=== PATIENT | female | born 1970 | race Caucasian/White ===

== ENCOUNTER 2022-02-14 14:18 | Emergency (ER) | payer BC ==
[~2022-02-14] VITALS: Ht 157.5 cm; Wt 113.4 kg
[~2022-02-14 14:18] MED LIST: ADIPEX-P37.5 MG PO; ALEVE220 M1 PO; CRESTOR20 MG PO; GLIPIZIDE5 MG PO; NORCO 10-325 T1 EACH PO; PAROXETINE HCL10 MG PO; PAROXETINE HCL20 MG PO; PHENTERMINE HCL15 MG PO; XYZAL5 MG PO; ZESTRIL5 MG PO
--- OUTSIDE RECORDS SUMMARY | 2022-02-14 14:20 | XMS ---
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 Pita has no Care Guidelines for this patient. Zoltan VISIT COUNT (12 MO.) 1 [facility] TOTAL 1 NOTE: Visits indicate total known visits. ED/C VISIT TRACKING (12 MO.) 02/14/2022 14:19 [facility] [place] TYPE: Emergency COMPLAINT: - BACK PAIN AFTER FALL INPATIENT VISIT TRACKING (12 MO.) No inpatient visits to display in this time frame [id number]
[2022-02-14] MEDS ORDERED: OZEMPIC1 MG/0.71 SQ (16:17)
[2022-02-14] MEDS ORDERED: FREESTYLE LIBR1 EAC2 MC (16:17)
[2022-02-14] MEDS ORDERED: METFORMIN HCL500 M1 PO (16:17)
[2022-02-14] MEDS ORDERED: HYDROCODON-ACE1 EA10 PO (18:57)
== END 2022-02-14 20:40 | disposition home or self-care (01) ==
LOC: ED 14:18
DX: S39.012A Strain of muscle, fascia and tendon of lower back, initial encounter (principal); R31.0 Gross hematuria; N20.0 Calculus of kidney; W11.XXXA Fall on and from ladder, initial encounter; Z88.0 Allergy status to penicillin; Z79.899 Other long term (current) drug therapy; Z79.84 Long term (current) use of oral hypoglycemic drugs
CPT/HCPCS: 36415; 71046; 74177; 80053; 81001; 85025; 96372; 99284-25; A9270; J1885; Q9967

== ENCOUNTER 2022-09-13 14:25 | Emergency (ER) | payer BC ==
[~2022-09-13] VITALS: Ht 157.5 cm; Wt 113.4 kg
--- OUTSIDE RECORDS SUMMARY | ~2022-09-13 | XMS | Continuity of Care Document ---
Demographics + + + | Address | [address] | | | [place] [address] | + + + | Preferred Language | Unknown | + + + | Marital Status | Never | + + + | Quaker Affiliation | Unknown | + + + | Race | White | + + + | Ethnic Group | Not or | + + + Author + + + | Author | [place] | + + + | Organization | [facility] | + + + | Address | [address] | | | [place] [address] | + + + | Phone | | + + + Care Team Providers + + + + | Care Urgent Care Physician Name | Role | Phone | + + + + Unavailable | Unavailable | + + + + Unavailable | Unavailable | + + + + Allergies and Intolerances + + + + + | date | description | facility | type | + + + + + | (no date) | Penicillin | [facility] (unknown[facility] | | + + + + + | (no date) | Penicillin | [facility] | (unknown) | | | [facility] Hospital | | + + + + + | (no date) | Penicillin | [facility] | (unknown) | | | | Hospital | | + + + + + | (no date) | Penicillin | [facility] | (unknown) | | | | Hospital | | + + + + + Encounters No information. Functional Status No information. Immunizations No information. Medications + + + + | date | description | facility | + + + + | 2022-02-14 00:00 | LISINOPRIL | [facility] | + + + + | 2022-02-14 00:00 | PAROXETINE HCL | [facility] | + + + + | 2022-02-14 00:00 | PAROXETINE HCL | [facility] | + + + + | 2022-02-14 00:00 | Semaglutide | [facility] | + + + + | 2022-02-14 00:00 | LEVOCETIRIZINE | [facility] | | | DIHYDROCHLORIDE | | + + + + | 2022-02-14 00:00 | HYDROCODONE | [facility] | | | BIT/ACETAMINOPHEN | | + + + + | 2022-02-14 00:00 | ROSUVASTATIN CALCIUM | [facility] | + + + + | 2022-02-14 00:00 | METFORMIN HCL | [facility] | + + + + | 2022-02-14 00:00 | PHENTERMINE HCL | [facility] | + + + + Problems + + + + | date | description | facility | + + + + | 2022-02-14 00:00 | Calculus of right kidney | [facility] | + + + + Procedures No information. Results/Labs +--------+--------+ + +---------+--------+ + | test | date | author | facility | value | unit | | | | | | | | | interpreta | | | | | | | | tion | +--------+--------+ + +---------+--------+ + + + | Result panel 1 | + + + + + + +---------+ + + | (unknown) | (no date) | (unknown) | [facility] | (unknown) | [facility] | [facility] | | | | + + + + +---------+ + + + + | Result panel 2 | + + + + + + +---------+ + + | (unknown) | (no date) | (unknown) | [facility]no | (units | (unknown) | | [facility] | value) | unknown) | | [facility] | | | | + + + + +---------+ + + + + | Result panel 3 | + + + + + + +---------+ + + | (unknown) | (no date) | (unknown) | [facility]no | (units | (unknown) | | [facility] | value) | unknown) | | [facility] | | | | + + + + +---------+ + + + + | Result panel 4 | + + + + + + +---------+ + + | (unknown) | (no date) | (unknown) | [facility]no | (units | (unknown) | | | [facility] | value) | unknown) | | | [facility] | | | | + + + + +---------+ + + + + | Result panel 5 | + + + + + + +---------+ + + | (unknown) | (no date) | (unknown) | [facility] (no | (units | (unknown) | | | [facility] | value) | unknown) | | | [facility] | | | | + + + + +---------+ + + + + | Result panel 6 | + + + + + + +---------+ + + | (unknown) | (no date) | (unknown) | [facility] (no | (units | (unknown) | | | [facility] | value) | unknown) | | | [facility] | | | | + + + + +---------+ + + + + | Result panel 7 | + + + + + + +---------+ + + | (unknown) | (no date) | (unknown) | [facility] (no | (units | (unknown) | | | [facility] | value) | unknown) | | [facility] | | | | + + + + +---------+ + + + + | Result panel 8 | + + + + + + +---------+ + + | (unknown) | (no date) | (unknown) | [facility] (no | (units | (unknown) | | | [facility] | value) | unknown) | | | [facility] | | | | + + + + +---------+ + + + + | Result panel 9 | + + + + + + +---------+ + + | (unknown) | (no date) | (unknown) | [facility] (no | (units | (unknown) | | | [facility] | value) | unknown) | | | [facility] | | | | + + + + +---------+ + + + + | Result panel 10 | + + + + + + +---------+ + + | (unknown) | (no date) | (unknown) | [facility] (no | (units | (unknown) | | | [facility] | value) | unknown) | | | [facility] | | | | + + + + +---------+ + + + + | Result panel 11 | + + + + + + +---------+ + + | (unknown) | (no date) | (unknown) | [facility] (no | (units | (unknown) | | | [facility] | value) | unknown) | | | [facility] | | | | + + + + +---------+ + + + + | Result panel 12 | + + + + + + +---------+ + + | (unknown) | (no date) | (unknown) | [facility] (no | (units | (unknown) | | | [facility] | value) | unknown) | | | [facility] | | | | + + + + +---------+ + + + + | Result panel 13 | + + + + + + +---------+ + + | (unknown) | (no date) | (unknown) | [facility] (no | (units | (unknown) | | | [facility] | value) | unknown) | | | [facility] | | | | + + + + +---------+ + + + + | Result panel 14 | + + + + + + +---------+ + + | (unknown) | (no date) | (unknown) | [facility] (no | (units | (unknown) | | | [facility] | value) | unknown) | | | [facility] | | | | + + + + +---------+ + + + + | Result panel 15 | + + + + + + +---------+ + + | (unknown) | (no date) | (unknown) | [facility] (no | (units | (unknown) | | | [facility] | value) | unknown) | | | [facility] | | | | + + + + +---------+ + + + + | Result panel 16 | + + + + + + +---------+ + + | (unknown) | (no date) | (unknown) | [facility] (no | (units | (unknown) | | | [facility] | value) | unknown) | | | [facility] | | | | + + + + +---------+ + + + + | Result panel 17 | + + + + + + +---------+ + + | (unknown) | (no date) | (unknown) | [facility] (no | (units | (unknown) | | | [facility] | value) | unknown) | | | | [facility] | | | | + + + + +---------+ + + + + | Result panel 18 | + + + + + + +---------+ + + | (unknown) | (no date) | (unknown) | [facility] (no | (units | (unknown) | | | [facility] | value) | unknown) | | | | [facility] | | | | + + + + +---------+ + + + + | Result panel 19 | + + + + + + +---------+ + + | (unknown) | (no date) | (unknown) | [facility] (no | (units | (unknown) | | | [facility] | value) | unknown) | | | | | [facility] | | | | + + + + +---------+ + + + + | Result panel 20 | + + + + + + +---------+ + + | (unknown) | (no date) | (unknown) | [facility] (no | (units | (unknown) | | | [facility] | value) | unknown) | | | | | [facility] | | | | + + + + +---------+ + + + + | Result panel 21 | + + + + + + +---------+ + + | (unknown) | (no date) | (unknown) | [facility] (no | (units | (unknown) | | | [facility] | value) | unknown) | | | | | [facility] | | | | + + + + +---------+ + + + + | Result panel 22 | + + + + + + +---------+ + + | (unknown) | (no date) | (unknown) | [facility] (no | (units | (unknown) | | | [facility] | value) | unknown) | | | | [facility] | | | | + + + + +---------+ + + + + | Result panel 23 | + + + + + + +---------+ + + | (unknown) | (no date) | (unknown) | [facility] (no | (units | (unknown) | | | [facility] | value) | unknown) | | | | [facility] | | | | + + + + +---------+ + + + + | Result panel 24 | + + + + + + +---------+ + + | (unknown) | (no date) | (unknown) | [facility] (no | (units | (unknown) | | | [facility] | value) | unknown) | | | | [facility] | | | | + + + + +---------+ + + + + | Result panel 25 | + + + + + + +---------+ + + | (unknown) | (no date) | (unknown) | [facility] (no | (units | (unknown) | | | [facility] | value) | unknown) | | | | | [facility] | | | | + + + + +---------+ + + + + | Result panel 26 | + + + + + + +---------+ + + | (unknown) | (no date) | (unknown) | [facility] (no | (units | (unknown) | | | [facility] | value) | unknown) | | | | | [facility] | | | | + + + + +---------+ + + + + | Result panel 27 | + + + + + + +---------+ + + | (unknown) | (no date) | (unknown) | [facility] (no | (units | (unknown) | | | [facility] | value) | unknown) | | | | | [facility] | | | | + + + + +---------+ + + + + | Result panel 28 | + + + + + + +---------+ + + | (unknown) | (no date) | (unknown) | [facility] | (no | (units | (unknown) | | | [facility] | value) | unknown) | | | | | [facility] | | | | + + + + +---------+ + + + + | Result panel 29 | + + + + + + +---------+ + + | (unknown) | (no date) | (unknown) | [facility] | (no | (units | (unknown) | | | [facility] | value) | unknown) | | | | | [facility] | | | | + + + + +---------+ + + + + | Result panel 30 | + + + + + + +---------+ + + | (unknown) | (no date) | (unknown) | [facility] | (no | (units | (unknown) | | | [facility] | value) | unknown) | | | | | [facility] | | | | + + + + +---------+ + + + + | Result panel 31 | + + + + + + +---------+ + + | (unknown) | (no date) | (unknown) | [facility] | (no | (units | (unknown) | | | [facility] | value) | unknown) | | | [facility] | | | | + + + + +---------+ + + + + | Result panel 32 | + + + + + + +---------+ + + | (unknown) | (no date) | (unknown) | [facility] | (no | (units | (unknown) | | | [facility] | value) | unknown) | | | | [facility] | | | | + + + + +---------+ + + + + | Result panel 33 | + + + + + + +---------+ + + | (unknown) | (no date) | (unknown) | [facility] | (no | (units | (unknown) | | | [facility] | value) | unknown) | | | [facility] | | | | + + + + +---------+ + + + + | Result panel 34 | + + + + + + +---------+ + + | (unknown) | (no date) | (unknown) | [facility] | (no | (units | (unknown) | | | [facility] | value) | unknown) | | | [facility] | | | | + + + + +---------+ + + + + | Result panel 35 | + + + + + + +---------+ + + | (unknown) | (no date) | (unknown) | [facility] (no | (units | (unknown) | | | [facility] | value) | unknown) | | [facility] | | | | + + + + +---------+ + + + + | Result panel 36 | + + + + + + +---------+ + + | (unknown) | (no date) | (unknown) | [facility] (no | (units | (unknown) | | | [facility] | value) | unknown) | | [facility] | | | | + + + + +---------+ + + + + | Result panel 37 | + + + + + + +---------+ + + | (unknown) | (no date) | (unknown) | [facility] | (no | (units | (unknown) | | | [facility] | value) | unknown) | | | [facility] | | | | + + + + +---------+ + + + + | Result panel 38 | + + + + + + +---------+ + + | (unknown) | (no date) | (unknown) | [facility] (no | (units | (unknown) | | | [facility] | value) | unknown) | | | [facility] | | | | + + + + +---------+ + + + + | Result panel 39 | + + + + + + +---------+ + + | (unknown) | (no date) | (unknown) | [facility] | (no | (units | (unknown) | | | [facility] | value) | unknown) | | | [facility] | | | | + + + + +---------+ + + + + | Result panel 40 | + + + + + + +---------+ + + | (unknown) | (no date) | (unknown) | [facility] | (no | (units | (unknown) | | | [facility] | value) | unknown) | | | [facility] | | | | + + + + +---------+ + + + + | Result panel 41 | + + + + + + +---------+ + + | (unknown) | (no date) | (unknown) | [facility] | (no | (units | (unknown) | | | [facility] | value) | unknown) | | | [facility] | | | | + + + + +---------+ + + + + | Result panel 42 | + + + + + + +---------+ + + | (unknown) | (no date) | (unknown) | [facility] | (no | (units | (unknown) | | | [facility] | value) | unknown) | | | [facility] | | | | + + + + +---------+ + + + + | Result panel 43 | + + + + + + +---------+ + + | (unknown) | (no date) | (unknown) | [facility] | (no | (units | (unknown) | | | [facility] | value) | unknown) | | | [facility] | | | | + + + + +---------+ + + + + | Result panel 44 | + + + + + + +---------+ + + | (unknown) | (no date) | (unknown) | [facility] (no | (units | (unknown) | | | [facility] | value) | unknown) | | | [facility] | | | | + + + + +---------+ + + + + | Result panel 45 | + + + + + + +---------+ + + | (unknown) | (no date) | (unknown) | [facility] (no | (units | (unknown) | | | [facility] | value) | unknown) | | [facility] | | | | + + + + +---------+ + + + + | Result panel 46 | + + + + + + +---------+ + + | (unknown) | (no date) | (unknown) | [facility] (no | (units | (unknown) | | | [facility] | value) | unknown) | | [facility] | | | | + + + + +---------+ + + + + | Result panel 47 | + + + + + + +---------+ + + | (unknown) | (no date) | (unknown) | [facility] | (no | (units | (unknown) | | | [facility] | value) | unknown) | | [facility] | | | | + + + + +---------+ + + + + | Result panel 48 | + + + + + + +---------+ + + | (unknown) | (no date) | (unknown) | [facility] | (no | (units | (unknown) | | | [facility] | value) | unknown) | | | [facility] | | | | + + + + +---------+ + + + + | Result panel 49 | + + + + + + +---------+ + + | (unknown) | (no date) | (unknown) | [facility] | (no | (units | (unknown) | | | [facility] | value) | unknown) | | [facility] | | | | + + + + +---------+ + + + + | Result panel 50 | + + + + + + +---------+ + + | (unknown) | (no date) | (unknown) | [facility] | (no | (units | (unknown) | | | [facility] | value) | unknown) | | | [facility] | | | | + + + + +---------+ + + + + | Result panel 51 | + + + + + + +---------+ + + | (unknown) | (no date) | (unknown) | [facility] (no | (units | (unknown) | | | [facility] | value) | unknown) | | [facility] | | | | + + + + +---------+ + + + + | Result panel 52 | + + + + + + +---------+ + + | (unknown) | (no date) | (unknown) | [facility] (no | (units | (unknown) | | | [facility] value) | unknown) | | | [facility] | | | | + + + + +---------+ + + + + | Result panel 53 | + + + + + + +---------+ + + | (unknown) | (no date) | (unknown) | [facility] (no | (units | (unknown) | | [facility] value) | unknown) | | [facility] | | | | + + + + +---------+ + + Social History No information. Vital [...]
--- OUTSIDE RECORDS SUMMARY | ~2022-09-13 | XMS | Continuity of Care Document ---
Demographics + + + | Address | [address] | | | [place] [address] | + + + | Preferred Language | Unknown | + + + | Marital Status | Never | + + + | Baptist Affiliation | Unknown | + + + | Race | White | + + + | Ethnic Group | Not or | + + + Author + + + | Author | [place] [facility] | + + + | Organization | [facility] | + + + | Address | [address] | | | [place] [address] | + + + | Phone | | + + + Care Team Providers + + + + | Care Livestock Inspector Name | Role | Phone | + + + + Unavailable | Unavailable | + + + + Unavailable | Unavailable | + + + + Allergies and Intolerances + + + + + | date | description | facility | type | + + + + + | (no date) | Penicillin | [facility] (unknown) [facility] | | + + + + + | (no date) | Penicillin | [facility] | (unknown) | | | [facility] Hospital | | + + + + + | (no date) | Penicillin | [facility] | (unknown) | | | | Hospital | | + + + + + | (no date) | Penicillin | [facility] | (unknown) | | | | Hospital | | + + + + + Encounters No information. Functional Status No information. Immunizations No information. Medications + + + + | date | description | facility | + + + + | 2022-02-14 00:00 | LISINOPRIL | [facility] | + + + + | 2022-02-14 00:00 | PAROXETINE HCL | [facility] | + + + + | 2022-02-14 00:00 | PAROXETINE HCL | [facility] | + + + + | 2022-02-14 00:00 | Semaglutide | [facility] | + + + + | 2022-02-14 00:00 | LEVOCETIRIZINE | [facility] | | | DIHYDROCHLORIDE | | + + + + | 2022-02-14 00:00 | HYDROCODONE | [facility] | | | BIT/ACETAMINOPHEN | | + + + + | 2022-02-14 00:00 | ROSUVASTATIN CALCIUM | [facility] | + + + + | 2022-02-14 00:00 | METFORMIN HCL | [facility] | + + + + | 2022-02-14 00:00 | PHENTERMINE HCL | [facility] | + + + + Problems + + + + | date | description | facility | + + + + | 2022-02-14 00:00 | Calculus of right kidney | [facility] | + + + + Procedures No [...]
[~2022-09-13 14:25] MED LIST changes: +FREESTYLE LIBR1 EAC2 MC; +HYDROCODON-ACE1 EA10 PO; +METFORMIN HCL500 M1 PO; +OZEMPIC1 MG/0.71 SQ
[2022-09-13 15:57] VITALS: BP 131/66
== END 2022-09-13 15:48 | disposition home or self-care (01) ==
LOC: ED 14:25
DX: S51.812A Laceration without foreign body of left forearm, initial encounter (principal); E11.9 Type 2 diabetes mellitus without complications; I10 Essential (primary) hypertension; W26.8XXA Contact with other sharp object(s), not elsewhere classified, initial encounter; Z88.0 Allergy status to penicillin; Z79.84 Long term (current) use of oral hypoglycemic drugs; Z79.899 Other long term (current) drug therapy
CPT/HCPCS: 12002; 90471; 90715; 99282 25

== ENCOUNTER 2022-09-18 12:17 | Emergency (ER) | payer BC ==
[~2022-09-18] VITALS: Ht 157.5 cm; Wt 98.0 kg
--- OUTSIDE RECORDS SUMMARY | ~2022-09-18 | XMS | Continuity of Care Document ---
Demographics + + + | Address | [address] | | | [place] [address] | + + + | Preferred Language | Unknown | + + + | Marital Status | Never | + + + | Lutheran Affiliation | Unknown | + + + | Race | White | + + + | Ethnic Group | Not or | + + + Author + + + | Author | [facility] | + + + | Organization | [facility] | + + + | Address | [address] | | | [place] [address] | + + + | Phone | | + + + Care Team Providers + + + + | Care Fabric Normalizer Name | Role | Phone | + + + + Unavailable | Unavailable | + + + + Unavailable | Unavailable | + + + + Unavailable | Unavailable | + + + + Allergies and Intolerances + + + + + + | date | description | facility | reaction | severity | + + + + + + | (no date) | Rash | [facility] | (no reaction) | (no severity) | [facility] | | | + + + + + + | (no date) | Penicillin | [facility] | (no reaction) | (no severity) | [facility] | | | + + + + + + | (no date) | Penicillin | [facility] | (no reaction) | (no severity) | [facility] | | | + + + + + + | (no date) | Penicillins | [facility] | (no reaction) | (no severity) | + + + + + + | (no date) | Penicillin | [facility] | (no reaction) | (no severity) | [facility] | | | + + + + + + | (no date) | Penicillin | [facility] | (no reaction) | (no severity) | [facility] | | | + + + + + + Encounters No information. Functional Status No information. Immunizations + + + + | date | description | facility | + + + + | 2022-09-13 00:00 | Tdap | [facility] | + + + + Medications + + + + | date | description | facility | + + + + | 2022-02-14 00:00 | LISINOPRIL | [facility] | + + + + | 2022-09-13 00:00 | LISINOPRIL | [facility] | + + + + | 2022-02-14 00:00 | PAROXETINE HCL | [facility] | + + + + | 2022-09-13 00:00 | PAROXETINE HCL | [facility] | + + + + | 2022-02-14 00:00 | PAROXETINE HCL | [facility] | + + + + | 2022-09-13 00:00 | PAROXETINE HCL | [facility] | + + + + | 2022-02-14 00:00 | Semaglutide | [facility] | + + + + | 2022-09-13 00:00 | Semaglutide | [facility] | + + + + | 2022-02-14 00:00 | LEVOCETIRIZINE | [facility] | | | DIHYDROCHLORIDE | | + + + + | 2022-09-13 00:00 | LEVOCETIRIZINE | [facility] | | | DIHYDROCHLORIDE | | + + + + | 2022-02-14 00:00 | HYDROCODONE | [facility] | | | BIT/ACETAMINOPHEN | | + + + + | 2022-02-14 00:00 | ROSUVASTATIN CALCIUM | [facility] | + + + + | 2022-09-13 00:00 | ROSUVASTATIN CALCIUM | [facility] | + + + + | 2022-02-14 00:00 | METFORMIN HCL | [facility] | + + + + | 2022-09-13 00:00 | METFORMIN HCL | [facility] | + + + + | 2022-02-14 00:00 | PHENTERMINE HCL | [facility] | + + + + | 2022-09-13 00:00 | PHENTERMINE HCL | [facility] | + + + + Problems + + + + | date | description | facility | + + + + | 2022-02-14 00:00 | Calculus of right kidney | [facility] | + + + + | 2022-02-14 00:00 | Calculus of right kidney | [facility] | + + + + | 2022-02-14 14:19 | LOW BACK PAIN, UNSPECIFIED | [facility] | | | | | + + + + | 2022-02-14 14:19 | CALCULUS OF KIDNEY | [facility] | + + + + | 2022-02-14 14:19 | GROSS HEMATURIA | [facility] | + + + + | 2022-02-14 14:19 | STRAIN OF MUSCLE, FASCIA | [facility] | | | AND TENDON OF LOWER BACK, | | + + + + | 2022-02-14 14:19 | FALL ON AND FROM LADDER, | [facility] | | | INITIAL ENCOUNTER | | + + + + | 2022-02-14 14:19 | 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 | + + + + | 2022-09-13 14:26 | TYPE 2 DIABETES MELLITUS | [facility] | | | WITHOUT COMPLICATIONS | | + + + + | 2022-09-13 14:26 | Essential (primary) | [facility] | | | hypertension | | + + + + | 2022-09-13 14:26 | LACERATION W/O FOREIGN | [facility] | | | BODY OF LEFT UPPER ARM, | | | | INIT ENCNTR | | + + + + | 2022-09-13 14:26 | LACERATION WITHOUT FOREIGN | [facility] | | | BODY OF LEFT FOREARM, I | | + + + + | 2022-09-13 14:26 | CONTACT WITH OTHER SHARP | [facility] | | | OBJECT(S), NEC, INITIAL E | | + + + + | 2022-09-13 14:26 | USP (CURRENT) USE OF | [facility] | | | ORAL HYPOGLYCEMIC DRUGS | | + + + + | 2022-09-13 14:26 | OTHER CHAIR INSTALLER (CURRENT) | [facility] | | | DRUG THERAPY | | + + + + | 2022-09-13 14:26 | ALLERGY STATUS TO | [facility] | | | [facility]EN[facility] | | + + + + Procedures No information. Results/Labs +--------+--------+ +---------+--------+---------+ | test | date | facility | value | unit | notes | +--------+--------+ +---------+--------+---------+ + + | Result panel 1 | + + + + + + + + + | | 2022-02-14 | [facility] | YELLOW | (missing) | (missing) | | (unavailable | [facility]30[facility]08 [facility] | | | + + + + + + + + + | Result panel 2 | + + + + + +---------+ + + | | 2022-02-14 | [facility] | CLEAR | (missing) | (missing) | | (unavailable | [facility]30[facility]08 [facility] | | | | + + + +---------+ + + + + | Result panel 3 | + + + + + + + + + | | 2022-02-14 | [facility] | NEGATIVE | (missing) | (missing) | | (unavailable | [facility]30[facility]08 [facility] | | | | + + + + + + + + + | Result panel 4 | + + + + + + + + + | | 2022-02-14 | [facility] | NEGATIVE | (missing) | (missing) | | (unavailable | [facility]30[facility]08 [facility] | | | | + + + + + + + + + | Result panel 5 | + + + + + + + + + | | 2022-02-14 | [facility] | NEGATIVE | (missing) | (missing) | | (unavailable | [facility]30[facility]08 [facility] | | | | + + + + + + + + + | Result panel 6 | + + + + + +---------+ + + | | 2022-02-14 | [facility] | 1.025 | (missing) | (missing) | | (unavailable | [facility]30[facility]08 [facility] | | | | + + + +---------+ + + + + | Result panel 7 | + + + + + +---------+ + + | | 2022-02-14 | [facility] | LARGE | (missing) | (missing) | | (unavailable | [facility]30[facility]08 [facility] | | | | + + + +---------+ + + + + | Result panel 8 | + + + + + +-------+ + + | | 2022-02-14 | [facility] | 8.0 | (missing) | (missing) | | (unavailable | [facility]30[facility]08 [facility] | | | | + + + +-------+ + + + + | Result panel 9 | + + + + + + + + + | | 2022-02-14 | [facility] | NEGATIVE | (missing) | (missing) | | (unavailable | [facility]30[facility]08 [facility] | | | | + + + + + + + + + | Result panel 10 | + + + + + + + + + | | 2022-02-14 | [facility] | NORMAL | (missing) | (missing) | | (unavailable | [facility]30[facility]08 [facility] | | | | + + + + + + + + + | Result panel 11 | + + + + + + + + + | | 2022-02-14 | [facility] | NEGATIVE | (missing) | (missing) | | (unavailable | [facility]30[facility]08 [facility] | | | | + + + + + + + + + | Result panel 12 | + + + + + + + + + | | 2022-02-14 | [facility] | NEGATIVE | (missing) | (missing) | | (unavailable | [facility]30[facility] | | | | + + + + + + + + + | Result panel 13 | + + + + + +-------+ + + | | 2022-02-14 | [facility] | >50 | (missing) | (missing) | | (unavailable | [facility]30:08 [facility] | | | | + + + +-------+ + + + + | Result panel 14 | + + + + + +-------+ + + | | 2022-02-14 | [facility] | 4-6 | (missing) | (missing) | | (unavailable | [facility]30[facility]08 [facility] | | | | + + + +-------+ + + + + | Result panel 15 | + + + + + + + + + | | 2022-02-14 | [facility] | SQUAMOUS 1+ | (missing) | (missing) | | (unavailable | [facility]30[facility]08 [facility] | | | | + + + + + + + + + | Result panel 16 | + + + + + + + + + | | 2022-02-14 | [facility] | NONE SEEN | (missing) | (missing) | | (unavailable | [facility]30[facility]08 [facility] | | | | + + + + + + + + + | Result panel 17 | + + + + + +--------+ + + | | 2022-02-14 | [facility] | RARE | (missing) | (missing) | | (unavailable | [facility]30[facility]08 [facility] | | | | + + + +--------+ + + + + | Result panel 18 | + + + + + + + + + | | 2022-02-14 | [facility] | NONE SEEN | (missing) | (missing) | | (unavailable | [facility]30[facility]08 [facility] | | | | + + + + + + + + + | Result panel 19 | + + + + + +------+ + + | | 2022-02-14 | [facility] | No | (missing) | (missing) | | (unavailable | [facility]30[facility]08 [facility] | | | | + + + +------+ + + + + | Result panel 20 | + + + + + + + + + | | 2022-02-14 | [facility] | CLEAN CATCH | (missing) | (missing) | | (unavailable | [facility]30[facility]08 [facility] | | | | + + + + + + + + + | Result panel 21 | + + + + + +--------+ + + | | 2022-02-14 | [facility] | 11.6 | (missing) | (missing) | | (unavailable | [facility]10:08 [facility] | | | | + + + +--------+ + + + + | Result panel 22 | + + + + + +--------+ + + | | 2022-02-14 | [facility] | 69.7 | (missing) | (missing) | | (unavailable | [facility]10[facility]08 [facility] | | | | + + + +--------+ + + + + | Result panel 23 | + + + + + +--------+ + + | | 2022-02-14 | [facility] | 24.1 | (missing) | (missing) | | (unavailable | [facility]10[facility]08 [facility] | | | | + + + +--------+ + + + + | Result panel 24 | + + + + + +-------+ + + | | 2022-02-14 | [facility] | 4.1 | (missing) | (missing) | | (unavailable | [facility]10[facility]08 [facility] | | | | + + + +-------+ + + + + | Result panel 25 | + + + + + +-------+ + + | | 2022-02-14 | [facility] | 1.4 | (missing) | (missing) | | (unavailable | [facility]10[facility]08 [facility] | | | | + + + +-------+ + + + + | Result panel 26 | + + + + + +-------+ + + | | 2022-02-14 | [facility] | 0.7 | (missing) | (missing) | | (unavailable | [facility]10[facility] | | | | + + + +-------+ + + + + | Result panel 27 | + + + + + +--------+ + + | | 2022-02-14 | [facility] | 4.43 | (missing) | (missing) | | (unavailable | [facility]10[facility] | | | | + + + +--------+ + + + + | Result panel 28 | + + + + + +--------+ + + | | 2022-02-14 | [facility] | 11.8 | (missing) | (missing) | | (unavailable | [facility]10[facility]08 [facility] | | | | + + + +--------+ + + + + | Result panel 29 | + + + + + +-------+---------+ + | | 2022-02-14 | [facility] | 113 | mg/dL | (missing) | | (unavailable | [facility]10:08 [facility] | | | | + + + +-------+---------+ + + + | Result panel 30 | + + + + + +------+---------+ + | | 2022-02-14 | [facility] | 17 | mg/dL | (missing) | | (unavailable | [facility]10:08 [facility] | | | | + + + +------+---------+ + + + | Result panel 31 | + + + + + +--------+---------+ + | | 2022-02-14 | [facility] | 0.78 | mg/dL | (missing) | | (unavailable | [facility]10:08 [facility] | | | | + + + +--------+---------+ + + + | Result panel 32 | + + + + + +------+ + + | | 2022-02-14 | [facility] | 91 | (missing) | (missing) | | (unavailable | [facility]10[facility]08 [facility] | | | | + + + +------+ + + + + | Result panel 33 | + + + + + +---------+ + + | | 2022-02-14 | [facility] | 21.79 | (missing) | (missing) | | (unavailable | [facility]10[facility]08 [facility] | | | | + + + +---------+ + + + + | Result panel 34 | + + + + + +--------+ + + | | 2022-02-14 | [facility] | 36.7 | (missing) | (missing) | | (unavailable | [facility]10[facility]08 [facility] | | | | + + + +--------+ + + + + | Result panel 35 | + + + + + +-------+ + + | | 2022-02-14 | [facility] | 141 | (missing) | (missing) | | (unavailable | [facility]10[facility]08 [facility] | | | | + + + +-------+ + + + + | Result panel 36 | + + + + + +-------+ + + | | 2022-02-14 | [facility] | 3.7 | (missing) | (missing) | | (unavailable | [facility]10[facility]08 [facility] | | | | + + + +-------+ + + + + | Result panel 37 | + + + + + +-------+ + + | | 2022-02-14 | [facility] | 103 | (missing) | (missing) | | (unavailable | 17::08 [facility] | | | | + + + +-------+ + + + + | Result panel 38 | + + + + + +------+ + + | | 2022-02-14 | [facility] | 30 | (missing) | (missing) | | (unavailable | [facility]10[facility]08 [facility] | | | | + + + +------+ + + + + | Result panel 39 | + + + + + +--------+ + + | | 2022-02-14 | [facility] | 11.7 | (missing) | (missing) | | (unavailable | 17::08 [facility] | | | | + + + +--------+ + + + + | Result panel 40 | + + + + + +-------+---------+ + | | 2022-02-14 | [facility] | 9.7 | mg/dL | (missing) | | (unavailable | [facility]10[facility]08 [facility] | | | | + + + +-------+---------+ + + + | Result panel 41 | + + + + + +-------+ + + | | 2022-02-14 | [facility] | 7.9 | (missing) | (missing) | | (unavailable | [facility]10[facility]08 [facility] | | | | + + + +-------+ + + + + | Result panel 42 | + + + + + +-------+ + + | | 2022-02-14 | [facility] | 3.6 | (missing) | (missing) | | (unavailable | [facility]10[facility]08 [facility] | | | | + + + +-------+ + + + + | Result panel 43 | + + + + + +-------+ + + | | 2022-02-14 | [facility] | 4.3 | (missing) | (missing) | | (unavailable | [facility]10[facility]08 [facility] | | | | + + + +-------+ + + + + | Result panel 44 | + + + + + +--------+ + + | | 2022-02-14 | [facility] | 0.84 | (missing) | (missing) | | (unavailable | [facility]10[facility]08 [facility] | | | | + + + +--------+ + + + + | Result panel 45 | + + + + + +--------+ + + | | 2022-02-14 | [facility] | 82.8 | (missing) | (missing) | | (unavailable | [facility]10[facility]08 [facility] | | | | + + + +--------+ + + + + | Result panel 46 | + + + + + +-------+ + + | | 2022-02-14 | [facility] | 0.7 | (missing) | (missing) | | (unavailable | [facility]10[facility]08 [facility] | | | | + + + +-------+ + + + + | Result panel 47 | + + + + + +------+ + + | | 2022-02-14 | [facility] | 26 | (missing) | (missing) | | (unavailable | [facility] | | | | + + + +------+ + + + + | Result panel 48 | + + + + + +------+ + + | | 2022-02-14 | [facility] | 32 | (missing) | (missing) | | (unavailable | [facility] | | | | + + + +------+ + + + + | Result panel 49 | + + + + + +-------+ + + | | 2022-02-14 | [facility] | 166 | (missing) | (missing) | | (unavailable | 17::08 [facility] | | | | + + + +-------+ + + + + | Result panel 50 | + + + + + +--------+ + + | | 2022-02-14 | [facility] | 26.6 | (missing) | (missing) | | (unavailable | [facility] | | | | + + + +--------+ + + + + | Result panel 51 | + + + + + +--------+ + + | | 2022-02-14 | [facility] | 32.1 | (missing) | (missing) | | (unavailable | [facility]10[facility]08 [facility] | | | | + + + +--------+ + + + + | Result panel 52 | + + + + + +--------+ + + | | 2022-02-14 | [facility] | 13.4 | (missing) | (missing) | | (unavailable | [facility] | | | | + + + +--------+ + + + + | Result panel 53 | + + + + + +-------+ + + | | 2022-02-14 | [facility] | 398 | (missing) | (missing) | | (unavailable | [facility]08 [facility] | | | + + + +-------+ + + Social History No information. Vital Signs + + + +---------+ | date | measurement | value | units | + + + +---------+ | 2022-02-14 00:00 | BMI | 45.7 | kg/m2 | + + + +---------+ | 2022-02-14 00:00 | BP_diastolic | 89 | mmHg | + + + +---------+ | 2022-02-14 00:00 | BP_systolic | 120 | mmHg | + + + +---------+ | 2022-02-14 00:00 | heart_rate | 70 | /min | + + + +---------+ | 2022-02-14 00:00 | height_metric | 157.48 | cm | + + + +---------+ | 2022-02-14 00:00 | height_standard | 62 | in | + + + +---------+ | 2022-02-14 00:00 | o2_saturation | 98 | % | + + + +---------+ | 2022-02-14 00:00 | respiration_rate | 16 | /min | + + + +---------+ | 2022-02-14 00:00 | temperature_metric | 36.67 | C | | | | | | + + + +---------+ | 2022-02-14 00:00 | | 98 | F | | | temperature_standar | | | | | d | | | + + + +---------+ | 2022-02-14 00:00 | weight_metric | 113.4 | kg | + + + +---------+ | 2022-02-14 00:00 | weight_standard | 250 | lb | + + + +---------+ | 2022-09-13 00:00 | BMI | 45.7 | kg/m2 | + + + +---------+ | 2022-09-13 00:00 | BP_diastolic | 66 | mmHg | + + + +---------+ | 2022-09-13 00:00 | BP_systolic | 131 | mmHg | + + + +---------+ | 2022-09-13 00:00 | heart_rate | 68 | /min | + + + +---------+ | 2022-09-13 00:00 | height_metric | 157.48 | cm | + + + +---------+ | 2022-09-13 00:00 | height_standard | 62 | in | + + + +---------+ | 2022-09-13 00:00 | o2_saturation | 96 | % | + + + +---------+ | 2022-09-13 00:00 | respiration_rate | 19 | /min | + + + +---------+ | 2022-09-13 00:00 | temperature_metric | 37 | C | | | | | | + + + +---------+ | 2022-09-13 00:00 | | 98.6 | F | | | temperature_standar | | | | | d | | | + + + +---------+ | 2022-09-13 00:00 | weight_metric | 113.4 | kg | + + + +---------+ | 2022-09-13 00:00 | weight_standard | 250 | lb | + + + +---------+"
--- OUTSIDE RECORDS SUMMARY | ~2022-09-18 | XMS | Continuity of Care Document ---
Demographics + + + | Address | [address] | | | [place] [address] | + + + | Preferred Language | Unknown | + + + | Marital Status | Never | + + + | Jehovah'S Witness Affiliation | Unknown | + + + | Race | White | + + + | Ethnic Group | Not or | + + + Author + + + | Author | [facility] | + + + | Organization | [facility] | + + + | Address | [address] | | | [place] [address] | + + + | Phone | | + + + Care Team Providers + + + + | Care National Business Director Name | Role | Phone | + [...] + | 2022-09-13 00:00 | Tdap | [facility] | + + + + Medications + + + + | date | description | facility | + + + + | 2022-02-14 00:00 | LISINOPRIL | [facility] | + + + + | 2022-09-13 00:00 | LISINOPRIL | [facility] | + + + + | 2022-02-14 00:00 | PAROXETINE HCL | [facility] | + + + + | 2022-09-13 00:00 | PAROXETINE HCL | [facility] | + + + + | 2022-02-14 00:00 | PAROXETINE HCL | [facility] | + + + + | 2022-09-13 00:00 | PAROXETINE HCL | [facility] | + + + + | 2022-02-14 00:00 | Semaglutide | [facility] | + + + + | 2022-09-13 00:00 | Semaglutide | [facility] | + + + + | 2022-02-14 00:00 | LEVOCETIRIZINE | [facility] | | | DIHYDROCHLORIDE | | + + + + | 2022-09-13 00:00 | LEVOCETIRIZINE | [facility] | | | DIHYDROCHLORIDE | | + + + + | 2022-02-14 00:00 | HYDROCODONE | [facility] | | | BIT/ACETAMINOPHEN | | + + + + | 2022-02-14 00:00 | ROSUVASTATIN CALCIUM | [facility] | + + + + | 2022-09-13 00:00 | ROSUVASTATIN CALCIUM | [facility] | + + + + | 2022-02-14 00:00 | METFORMIN HCL | [facility] | + + + + | 2022-09-13 00:00 | METFORMIN HCL | [facility] | + + + + | 2022-02-14 00:00 | PHENTERMINE HCL | [facility] | + + + + | 2022-09-13 00:00 | PHENTERMINE HCL | [facility] | + + + + Problems + + + + | date | description | facility | + + + + | 2022-02-14 00:00 | Calculus of right kidney | [facility] | + + + + | 2022-02-14 00:00 | Calculus of right kidney | [facility] | + + + + | [...] + + + | 2022-02-14 14:19 | 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
--- OUTSIDE RECORDS SUMMARY | 2022-09-18 12:20 | XMS ---
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 - 2 Visits in 30 Days CARE PROVIDERS There are no care providers on record at this time. Pita has no Care Guidelines for this patient. Zoltan VISIT COUNT (12 MO.) 3 [facility] [place] [facility] TOTAL 3 NOTE: Visits indicate total known visits. ED/C VISIT TRACKING (12 MO.) 09/18/2022 12:[address] 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 - Other intermodal dispatcher (current) drug therapy - Type 2 diabetes mellitus without complications 02/14/2022 14:19 [facility] [place] TYPE: Emergency COMPLAINT: - BACK PAIN AFTER FALL DIAGNOSES: - Allergy status to penicillin - Calculus of kidney - Fall on and from ladder, initial encounter - Gross hematuria - skilled nursing (current) use of oral hypoglycemic drugs - Low back pain, unspecified - Other intermodal dispatcher (current) drug therapy - Strain of muscle, fascia and tendon of lower back, initial encounter INPATIENT VISIT TRACKING (12 MO.) No inpatient visits to display in this time frame [id number]
[2022-09-18] MEDS ORDERED: CEPHALEXIN500 M1 PO (13:33)
[2022-09-18 13:40] VITALS: BP 110/69
== END 2022-09-18 13:40 | disposition home or self-care (01) ==
LOC: ED 12:17
DX: L08.9 Local infection of the skin and subcutaneous tissue, unspecified (principal); S51.802D Unspecified open wound of left forearm, subsequent encounter; W16.112D Fall into natural body of water striking water surface causing other injury, subsequent encounter; I10 Essential (primary) hypertension; E11.9 Type 2 diabetes mellitus without complications; Z88.0 Allergy status to penicillin; Z79.899 Other long term (current) drug therapy; Z79.84 Long term (current) use of oral hypoglycemic drugs
CPT/HCPCS: A9270